=== PATIENT | female | born 1995 | race Hispanic/Latino ===

== ENCOUNTER 2019-03-30 00:49 | Emergency (ER) | payer OTHER ==
[2019-03-30] MEDS ORDERED: ONDANSETRON HCL 4 MG/2 ML VIAL ONE (01:28)
[2019-03-30] MEDS ORDERED: ACETAMINOPHEN EXTRA STRENGTH 500 MG TABLET ONE (01:28)
[2019-03-30] MEDS ORDERED: METOCLOPRAMIDE 10 MG/2 ML VIAL ONE (01:28)
[2019-03-30] MEDS ORDERED: FAMOTIDINE/PF 20 MG/2 ML VIAL IV ONE (01:29)
[2019-03-30] MEDS ORDERED: SODIUM CHLORIDE 0.9% 1000ML 1,000 ML IV ONE (01:29)
[2019-03-30] MEDS ORDERED: IBUPROFEN 200 MG TAB ONE (01:52)
[2019-03-30] MEDS ORDERED: IBUPROFEN 400 MG TABLET ONE (01:52)
== END 2019-03-30 02:44 | disposition home or self-care (01) ==
LOC: EDH 00:49
DX: E86.9 Volume depletion, unspecified (principal); R19.7 Diarrhea, unspecified; Z88.6 Allergy status to analgesic agent
CPT/HCPCS: 96361; 96374; 96375; 99285; J2405; J2765; J3490; J7030

== ENCOUNTER 2019-09-14 13:01 | Emergency (ER) | payer OTHER ==
[2019-09-14] MEDS ORDERED: ONDANSETRON ODT 4 MG TAB ONE (13:22)
[2019-09-14 13:34] LABS: BASOPHILS % (AUTO) 0.1 % (0.0-5.0); EOSINOPHILS % (AUTO) 2.1 % (0.0-8.0); MEAN CORPUSCULAR HEMOGLOBIN 28.4 pg (27.0-33.0); MEAN CORPUSCULAR HGB CONC 32.8 g/dL (32.0-36.0); MEAN CORPUSCULAR VOLUME 86.6 fL (79-99); MONOCYTES % (AUTO) 4.8 % (3.0-13.0); NEUTROPHILS % (AUTO) 62.7 % (40.0-77.0); PLATELET COUNT (AUTO) 290 K/uL (130-400); RED BLOOD CELL COUNT(AUTO) 4.62 MIL/uL (4.00-5.50); RED CELL DISTRIBUTION WIDTH 12.4 % (11.0-15.5); WHITE BLOOD COUNT (AUTO) 7.9 K/uL (4.8-10.8)
[2019-09-14 13:40] LABS: CREATININE 0.7 mg/dL (0.5-1.5); POTASSIUM 3.7 mmol/L (3.5-5.1)
[2019-09-14 13:50] LABS: ALBUMIN 3.9 g/dL (3.5-5.0); BILIRUBIN,TOTAL 0.6 mg/dL (0.2-1.0); TOTAL PROTEIN, SERUM 8.6 g/dL (6.0-8.3)
== END 2019-09-14 14:58 | disposition home or self-care (01) ==
LOC: EDH 13:01
DX: R11.2 Nausea with vomiting, unspecified (principal); R19.7 Diarrhea, unspecified; Z88.0 Allergy status to penicillin
CPT/HCPCS: 36415; 80053; 83690; 84702; 85025

== ENCOUNTER 2020-06-06 11:54 | Emergency (ER) | payer OTHER ==
[2020-06-06] MEDS ORDERED: LIDOCAINE 5% TOPICAL PATCH TP ONE (12:49)
[2020-06-06] MEDS ORDERED: KETOROLAC TROMETHAMINE 30MG/ML ONE (14:18)
== END 2020-06-06 15:41 | disposition home or self-care (01) ==
LOC: EDH 11:54
DX: S29.012A Strain of muscle and tendon of back wall of thorax, initial encounter (principal); Z88.6 Allergy status to analgesic agent; X58.XXXA Exposure to other specified factors, initial encounter; Y93.89 Activity, other specified; Y92.89 Other specified places as the place of occurrence of the external cause; Y99.8 Other external cause status
CPT/HCPCS: 72070; 73030; 96372; 99284; J1885

== ENCOUNTER 2020-07-16 16:02 | Emergency (ER) | payer OTHER ==
[2020-07-16] MEDS ORDERED: SODIUM CHLORIDE 0.9% 1000ML 1,000 ML IV ONE (16:03)
[2020-07-16] MEDS ORDERED: PROMETHAZINE HCL 25 MG/ML 1ML AMPULE IM ONE (16:03)
[2020-07-16] MEDS ORDERED: KETOROLAC TROMETHAMINE 30MG/ML ONE (16:21)
[2020-07-16] MEDS ORDERED: ACETAMINOPHEN 325 MG TAB ONE (16:21)
== END 2020-07-16 18:20 | disposition home or self-care (01) ==
LOC: EDH 16:02
DX: T88.1XXA Other complications following immunization, not elsewhere classified, initial encounter (principal); B34.9 Viral infection, unspecified; Z88.6 Allergy status to analgesic agent
CPT/HCPCS: 96374; 96375; 99284; J1885; J2550; J7030